=== PATIENT | male | born 1945 | race Caucasian/White ===

== ENCOUNTER 2016-06-20 18:02 | Emergency (ER) | payer MEDICARE, OTHER ==
[2016-06-20 18:39] VITALS: BP 131/81
[2016-06-20] MEDS ORDERED: Tetan/Diph/Pertus SYR(Tdap)* 0.5 ML SYR(BOOSTRIX) use SYR IM ONE (19:23)
[2016-06-20] MEDS ORDERED: Amoxicillin/Clavulanate TAB* 875 MG PO ONE (19:23)
--- NOTE | 2016-06-20 19:32 | UC ---
Bite Injury/Animal HPI - HPI Summary HPI Summary: 06/19/16 HAD BITE TO RIGHT HAND FROM CAT. TODAY AREA AROUND BITE IS BECOMING RED AND SWOLLEN, NO DISCHARGE. LAST TETANUS SHOT UNKNOWN. NO FEVERS. NO SWOLLEN LYMPH NODES. 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 Negative: Fever, Drainage, Swelling, Lymphadenopathy Hx of Bite: Provoked by: - [employer] Animal Available for Observation: Yes Animal Control Notified: Yes - Risk Factors Infection/Sepsis Risk Factors: Full-Thickness Puncture, Delay in Initial Treatment - Allergies/Home Medications Allergies/Adverse Reactions: Allergies Allergy/AdvReac Type Severity Reaction Status Date / Time No Known Allergies Allergy Verified 06/20/16 18:39 Home Medications: Home Medications Levothyroxine TAB* [Synthroid TAB*] 50 mcg PO DAILY 06/20/16 [History Confirmed 06/20/16] PMH/Surg Hx/FS Hx/Imm Hx Previously Healthy: Yes Endocrine History Of: Reports: Thyroid Disease - Surgical History Surgical History: Yes Surgery Procedure, Year, and Place: HERNIA REPAIR, PILONIDAL CYST - Family History Known Family History: Negative: Diabetes - Social History Occupation: Retired Lives: With Family Alcohol Use: Daily Alcohol Amount: 2 BEERS/DAY Substance Use Type: None Smoking Status (MU): Never Smoked Tobacco - Immunization History Most Recent Tetanus Shot: UNKNOWN Review of Systems Constitutional: Negative Skin: Negative Eyes: Negative ENT: Negative Respiratory: Negative Cardiovascular: Negative Gastrointestinal: Negative Genitourinary: Negative Motor: Negative Neurovascular: Negative Musculoskeletal: Edema - RIGHT HAND, Myalgia - RIGHT HAND Neurological: Negative Psychological: Negative All Other Systems Reviewed And Are Negative: Yes Physical Exam Triage Information Reviewed: Yes Appearance: Well-Appearing, No Pain Distress, Well-Nourished Vital Signs: Initial Vital Signs Temp 99.1 F 06/20/16 18:29 Pulse 78 06/20/16 18:29 Resp 16 06/20/16 18:29 BP 131/81 06/20/16 18:29 Pulse Ox 96 06/20/16 18:29 Vital Signs Reviewed: Yes Eye Exam: Normal Eyes: Positive: Conjunctiva Clear ENT Exam: Normal ENT: Positive: Normal ENT inspection, Hearing grossly normal, Pharynx normal, TMs normal Dental Exam: Normal Neck exam: Normal Neck: Positive: Supple, Nontender, No Lymphadenopathy Respiratory Exam: Normal Respiratory: Positive: Chest non-tender, Lungs clear, Normal breath sounds, No respiratory distress, No accessory muscle use Cardiovascular Exam: Normal Cardiovascular: Positive: RRR, No Murmur, Pulses Normal Abdominal Exam: Normal Musculoskeletal: Positive: Strength Intact, ROM Intact, Edema @ - RIGHT HAND Neurological Exam: Normal Psychological Exam: Normal Psychological: Positive: Normal Response To Family Skin: Positive: Other - ERRETHEMA RIGHT HAND Bite Injury Course/Dx - Differential Dx/Diagnosis Differential Diagnosis/HQI/PQRI: Joint Space Infection, Superficial Infection, Deep Space Infection Provider Diagnoses: CAT BITE (PUNCTURE WOUND) RIGHT HAND Discharge - Discharge Plan Condition: Stable Disposition: HOME Prescriptions: Amoxicillin/Clavulanate TAB* [Augmentin TAB 875*] 875 mg PO BID #20 tab Patient Education Materials: Animal Bite (ED) Referrals: Tommy Martin MD [Primary Care Provider] - Karin Thacker MD [Medical Doctor] -
== END 2016-06-20 19:52 | disposition home or self-care (01) ==
LOC: UCEAST 18:02
DX: S61.431A Puncture wound without foreign body of right hand, initial encounter (principal); W55.01XA Bitten by cat, initial encounter; Y93.9 Activity, unspecified; Y92.9 Unspecified place or not applicable; F10.99 Alcohol use, unspecified with unspecified alcohol-induced disorder; Z23 Encounter for immunization
CPT/HCPCS: 90471; 90715; 99212; A9270-GY; G0463

== ENCOUNTER 2016-10-12 21:33 | Emergency (ER) | payer MEDICARE, OTHER ==
[2016-10-12 21:39] VITALS: BP 129/72
--- NOTE | 2016-10-12 21:58 | UC ---
Lower Extremity/Ankle HPI - HPI Summary HPI Summary: Accidentally kicked R foot into hard object this afternoon. Since then has had significant pain, swelling, bruising at R 4th toe and into foot. Is bearing weight. No hx of osteoporosis or bone/joint disorders. Pt's was very concerned and wanted him to be seen. - History of Current Complaint Chief Complaint: UCLowerExtremity Stated Complaint: TOE INJURY Time Seen by Provider: 10/12/16 21:41 Hx Obtained From: Patient Onset/Duration: Sudden Onset Severity Initially: Moderate Severity Currently: Mild Aggravating Factor(s): Standing, Ambulation Able to Bear Weight: Yes - Allergies/Home Medications Allergies/Adverse Reactions: Allergies Allergy/AdvReac Type Severity Reaction Status Date / Time No Known Allergies Allergy Verified 10/12/16 21:39 PMH/Surg Hx/FS Hx/Imm Hx Previously Healthy: Yes - Surgical History Surgical History: Yes Surgery Procedure, Year, and Place: HERNIA REPAIR, PILONIDAL CYST - Family History Known Family History: Negative: Diabetes - Social History Lives: With Family Alcohol Use: Daily Alcohol Amount: 1-2 DRINKS/DAY Substance Use Type: None Smoking Status (MU): Never Smoked Tobacco - Immunization History Most Recent Tetanus Shot: UNKNOWN Review of Systems Constitutional: Negative Skin: Bruising Eyes: Negative ENT: Negative Respiratory: Negative Cardiovascular: Negative Gastrointestinal: Negative Genitourinary: Negative Motor: Negative Neurovascular: Negative Musculoskeletal: Arthralgia - R 4th toe Neurological: Negative Psychological: Negative All Other Systems Reviewed And Are Negative: Yes Physical Exam Triage Information Reviewed: Yes Appearance: Well-Appearing, Well-Nourished Vital Signs: Initial Vital Signs Temp 99 F 10/12/16 21:36 Pulse 75 10/12/16 21:36 Resp 16 10/12/16 21:36 BP 129/72 10/12/16 21:36 Pulse Ox 96 10/12/16 21:36 Vital Signs Reviewed: Yes Eye Exam: Normal Eyes: Positive: Conjunctiva Clear ENT Exam: Normal ENT: Positive: Normal ENT inspection, Hearing grossly normal, Pharynx normal, TMs normal Dental Exam: Normal Neck exam: Normal Neck: Positive: Supple, Nontender, No Lymphadenopathy Respiratory Exam: Normal Respiratory: Positive: Chest non-tender, Lungs clear, Normal breath sounds, No respiratory distress, No accessory muscle use Cardiovascular Exam: Normal Cardiovascular: Positive: RRR, No Murmur Musculoskeletal: Positive: Other: - tenderness and bruising over proximal 4th phalanx of R foot. No bony tenderness in foot. Neurological Exam: Normal Neurological: Positive: Alert Psychological Exam: Normal Skin Exam: Normal Lower Extremity Course/Dx - Differential Dx/Diagnosis Provider Diagnoses: R 4th toe proximal phalangeal fx closed, nondisplaced, clinical diagnosis Discharge - Discharge Plan Condition: Stable Disposition: HOME Patient Education Materials: Toe Fracture (ED) Referrals: Tommy Martin MD [Primary Care Provider] - Additional Instructions: As we discussed, the treatment of broken toes is the same as the treatment for badly sprained or bruised toes. Since your toe is in a normal anatomic position and getting good blood flow, we can call it broken on clinical exam. Simply protect it from injury by wearing stiff, closed-toe shoes and rest as much as necessary. As your pain improves your activity can increase. Don't hesitate to return here or see your primary care provider if you are seeing new or worsening symptoms.
== END 2016-10-12 21:57 | disposition home or self-care (01) ==
LOC: UCEAST 21:33
DX: S92.911A Unspecified fracture of right toe(s), initial encounter for closed fracture (principal); W22.8XXA Striking against or struck by other objects, initial encounter; Y92.9 Unspecified place or not applicable
CPT/HCPCS: 99211; G0463

== ENCOUNTER 2022-11-19 17:03 | Inpatient (IN) ==
[2022-11-19] MEDS ORDERED: Tetan/Diph/Pertus SYR(Tdap) 0.5 ML SYR(BOOSTRIX) use SYR contains LATEX IM ONE (17:52)
[2022-11-19] MEDS ORDERED: fentaNYL 100 mcg/2 ml 50 MCG/ML VIAL IV SLOW PU ONE ×3 (17:53→19:51)
[2022-11-19] MEDS ORDERED: ceFAZolin 2 GM in NS PREMIX 2 GM/100 ML BAG IVPB ONE (17:53)
[2022-11-19] MEDS ORDERED: Lactated Ringers 1000 ml BAG 1,000 ML IV ONE ×2 (19:59)
[2022-11-19 20:40] LABS: ABS Lymphocytes 0.6 10^3/uL (1.0-4.8); ABS Monocytes 0.6 10^3/uL (0.0-1.1); ABS Neutrophils 10.2 10^3/uL (1.5-7.6); Eosinophil % 0.1 %; Hematocrit 37.4 % (38-53); Hemoglobin 12.8 g/dL (13.2-16.3); Lymphocyte % 5.2 %; Mean Corpuscular Hemoglobin 29.7 pg (27-33); Mean Corpuscular Hgb Conc 34.1 g/dL (31-36); Mean Corpuscular Volume 86.9 fL (80-97); Mean Platelet Volume 6.6 fL (7.5-11.2); Platelet Count 158 10^3/uL (150-450); Red Blood Count 4.31 10^6/uL (4.06-5.63); Red Cell Distribution Width 14.1 % (12-17); White Blood Count 11.5 10^3/uL (3.6-10.2)
[2022-11-19 20:50] LABS: Activated Partial Thrombo Time 29.3 seconds (26.0-38.0); INR 1.11 (0.88-1.18)
[2022-11-19 20:57] LABS: Albumin 3.7 g/dL (3.2-5.2); Albumin/Globulin Ratio 1.7 (1-3); Calcium 8.8 mg/dL (8.6-10.3); Creatinine, Serum 1.27 mg/dL (0.67-1.17); Globulin 2.2 g/dL (2-4); Potassium 3.6 mmol/L (3.5-5.0); Total Bilirubin 0.5 mg/dL (0.2-1.0); Total Protein 5.9 g/dL (6.4-8.9); eGFR CKD-EPI 58.9 (>60)
[2022-11-19] MEDS ORDERED: Ondansetron 4 mg VIAL 2 MG/ML 2 ml VIAL IV PRN (21:17)
[2022-11-19] MEDS ORDERED: Magnesium Hydroxide LIQ 30 ML UDC PO PRN (21:47)
[2022-11-19] MEDS: Acetaminophen IV 1 GM/100ML 1,000 MG/100 ML BAG IV SCH (22:14)
[2022-11-20] MEDS: NS 0.9% 1000 ml BAG 1,000 ML IV SCH ×2 (03:15→13:17)
[2022-11-20] MEDS: Acetaminophen IV 1 GM/100ML 1,000 MG/100 ML BAG IV SCH ×4 (04:17→22:52)
[2022-11-20] MEDS: ceFAZolin 2 GM PREMIX 2 GM/50 ML BAG IV SCH ×3 (04:55→20:34)
[2022-11-20 05:51] LABS: ABS Lymphocytes 0.6 10^3/uL (1.0-4.8); ABS Monocytes 0.7 10^3/uL (0.0-1.1); ABS Neutrophils 6.5 10^3/uL (1.5-7.6); Eosinophil % 0.3 %; Hematocrit 32.3 % (38-53); Hemoglobin 11.4 g/dL (13.2-16.3); Lymphocyte % 7.4 %; Mean Corpuscular Hemoglobin 30.5 pg (27-33); Mean Corpuscular Hgb Conc 35.2 g/dL (31-36); Mean Corpuscular Volume 86.7 fL (80-97); Mean Platelet Volume 6.7 fL (7.5-11.2); Platelet Count 129 10^3/uL (150-450); Red Blood Count 3.73 10^6/uL (4.06-5.63); Red Cell Distribution Width 14.4 % (12-17); White Blood Count 7.9 10^3/uL (3.6-10.2)
[2022-11-20 06:09] LABS: Calcium 8.2 mg/dL (8.6-10.3); Creatinine, Serum 1.12 mg/dL (0.67-1.17); Magnesium 1.9 mg/dL (1.9-2.7); Potassium 3.9 mmol/L (3.5-5.0); eGFR CKD-EPI 68.5 (>60)
[2022-11-20] MEDS: Polyethylene Glycol 3350 17 GM PACKET PO SCH (08:45)
[2022-11-20] MEDS: Morphine 2 MG/ML SYRINGE IV PRN ×2 (15:24→20:28)
[2022-11-20] MEDS: Senna TAB 8.6 mg TAB PO SCH (20:28)
[2022-11-21] MEDS: Morphine 2 MG/ML SYRINGE IV PRN ×2 (02:28→22:13)
[2022-11-21] MEDS: Acetaminophen IV 1 GM/100ML 1,000 MG/100 ML BAG IV SCH ×3 (04:32→21:44)
[2022-11-21] MEDS: ceFAZolin 2 GM PREMIX 2 GM/50 ML BAG IV SCH ×3 (05:05→20:00)
[2022-11-21 05:55] LABS: ABS Eosinophils 0.1 10^3/uL (0.0-0.5); ABS Lymphocytes 0.5 10^3/uL (1.0-4.8); ABS Monocytes 0.6 10^3/uL (0.0-1.1); ABS Neutrophils 4.2 10^3/uL (1.5-7.6); Eosinophil % 1.6 %; Hematocrit 29.7 % (38-53); Hemoglobin 10.5 g/dL (13.2-16.3); Mean Corpuscular Hemoglobin 30.6 pg (27-33); Mean Corpuscular Hgb Conc 35.2 g/dL (31-36); Mean Platelet Volume 6.8 fL (7.5-11.2); Platelet Count 111 10^3/uL (150-450); Red Blood Count 3.42 10^6/uL (4.06-5.63); Red Cell Distribution Width 14.2 % (12-17); White Blood Count 5.4 10^3/uL (3.6-10.2)
[2022-11-21 06:12] LABS: Calcium 8.3 mg/dL (8.6-10.3); Creatinine, Serum 1.09 mg/dL (0.67-1.17); Magnesium 1.8 mg/dL (1.9-2.7); Potassium 3.9 mmol/L (3.5-5.0); eGFR CKD-EPI 70.8 (>60)
[2022-11-21] MEDS ORDERED: Magnesium Sulfate IV 3 GM in NS 0.9% 100 ml BAG 100 ML IVPB ONE (07:06)
[2022-11-21] MEDS ORDERED: Vancomycin 1,000 MG VIAL ONE (07:32)
[2022-11-21] MEDS ORDERED: Bupivacaine 0.5% W/EPI SDV 10 ML VIAL INJ ONE (07:32)
[2022-11-21] MEDS ORDERED: Midazolam 2 mg/2 ml VIAL 1 mg/ml 2 ml VIAL (2 mg) ONE (07:47)
[2022-11-21] MEDS ORDERED: fentaNYL 100 mcg/2 ml 50 MCG/ML VIAL ONE (07:47)
[2022-11-21] MEDS ORDERED: Propofol 10 MG/ML 20 ML BTL ONE (07:48)
[2022-11-21] MEDS ORDERED: Lidocaine 2% PF 5 ML VIAL ONE (07:48)
[2022-11-21] MEDS ORDERED: Dexamethasone IV 4 MG/ML VIAL 1 ml VIAL ONE ×2 (07:49→09:19)
[2022-11-21] MEDS ORDERED: Rocuronium 50 mg VIAL 10 mg/ml 5 ml VIAL (50 mg) ONE ×5 (07:49→13:46)
[2022-11-21] MEDS ORDERED: ceFAZolin 2 GM in NS PREMIX 2 GM/100 ML BAG IVPB ONE ×2 (08:32→12:59)
[2022-11-21] MEDS: Polyethylene Glycol 3350 17 GM PACKET PO SCH (08:44)
[2022-11-21] MEDS ORDERED: HYDROmorphone 0.5 MG/0.5 ML SYRINGE ONE ×3 (09:10→14:05)
[2022-11-21] MEDS ORDERED: Acetaminophen IV 1 GM/100ML 1,000 MG/100 ML BAG IV ONE ×2 (09:24→16:08)
[2022-11-21] MEDS ORDERED: Ondansetron 4 mg VIAL 2 MG/ML 2 ml VIAL IV PRN (11:25)
[2022-11-21] MEDS ORDERED: fentaNYL 100 mcg/2 ml 50 MCG/ML VIAL IV PRN (11:25)
[2022-11-21] MEDS ORDERED: Naloxone 0.4 mg VIAL 0.4 mg/ml 1 ml VIAL IV PRN (11:25)
[2022-11-21] MEDS ORDERED: Ondansetron 4 mg VIAL 2 MG/ML 2 ml VIAL ONE (14:17)
[2022-11-21] MEDS: Senna TAB 8.6 mg TAB PO SCH (22:12)
[2022-11-21] MEDS: ceFAZolin 1 GM ADVAN 1 GM in NS 0.9% 50 ML 50 ML IVPB SCH (22:57)
[2022-11-22 06:49] LABS: ABS Lymphocytes 0.6 10^3/uL (1.0-4.8); ABS Neutrophils 5.6 10^3/uL (1.5-7.6); Eosinophil % 0.1 %; Hematocrit 26.8 % (38-53); Hemoglobin 9.6 g/dL (13.2-16.3); Lymphocyte % 7.7 %; Mean Corpuscular Hemoglobin 30.6 pg (27-33); Mean Corpuscular Hgb Conc 35.8 g/dL (31-36); Mean Corpuscular Volume 85.4 fL (80-97); Mean Platelet Volume 6.8 fL (7.5-11.2); Platelet Count 120 10^3/uL (150-450); Red Blood Count 3.14 10^6/uL (4.06-5.63); Red Cell Distribution Width 13.9 % (12-17); White Blood Count 7.2 10^3/uL (3.6-10.2)
[2022-11-22] MEDS: ceFAZolin 1 GM ADVAN 1 GM in NS 0.9% 50 ML 50 ML IVPB SCH ×2 (06:52→15:07)
[2022-11-22 07:03] LABS: Calcium 7.9 mg/dL (8.6-10.3); Creatinine, Serum 1.08 mg/dL (0.67-1.17); Magnesium 1.9 mg/dL (1.9-2.7); Potassium 4.1 mmol/L (3.5-5.0); eGFR CKD-EPI 71.6 (>60)
[2022-11-22] MEDS: Morphine 2 MG/ML SYRINGE IV PRN (07:45)
[2022-11-22] MEDS: Polyethylene Glycol 3350 17 GM PACKET PO SCH (08:24)
[2022-11-22] MEDS: Senna TAB 8.6 mg TAB PO SCH (20:40)
[2022-11-23] MEDS: Polyethylene Glycol 3350 17 GM PACKET PO SCH (07:48)
[2022-11-23] MEDS: Senna TAB 8.6 mg TAB PO SCH (21:03)
[2022-11-24] MEDS: Polyethylene Glycol 3350 17 GM PACKET PO SCH (09:10)
[2022-11-24 10:43] VITALS: BP 113/69
== END 2022-11-24 16:15 | disposition home or self-care (01) | DRG 493 ==
LOC: EDHOLD 17:03 → ED 17:03 → SUATTDRO 21:17 → MED 11-20 14:25 → SSU 11-21 15:53
PROVIDERS: ADMIT Hospitalist; ATTEND Orthopaedic Surgery

== ENCOUNTER 2024-03-13 05:25 | Observation (INO) ==
[~2024-03-13 05:25] MED LIST: Buffered Lidocaine 1% SYRIN 1 ml INTRADERM ONE; Lactated Ringers 1000 ml BAG 1,000 ML IV SCH; Lidocaine 1% w EPI 1:200,000 SDV 30 ML VIAL ONE; Naloxone 0.4 mg VIAL 0.4 mg/ml 1 ml VIAL IV PRN; Vancomycin 1,000 MG VIAL ONE
[2024-03-13] MEDS ORDERED: Tranexamic Acid 1 GM/100ML BAG 2,000 MG/200 ML BAG IV ONE (06:11)
[2024-03-13] MEDS ORDERED: ceFAZolin 2 GM PREMIX 2 GM/50 ML BAG ONE (06:11)
[2024-03-13] MEDS ORDERED: Dexamethasone IV 4 MG/ML VIAL 1 ml VIAL ONE (06:19)
[2024-03-13] MEDS ORDERED: Propofol 10 MG/ML 20 ML BTL ONE (06:19)
[2024-03-13] MEDS ORDERED: Ondansetron 4 mg VIAL 2 MG/ML 2 ml VIAL ONE (06:19)
[2024-03-13] MEDS ORDERED: Lidocaine 2% PF 5 ML VIAL ONE (06:19)
[2024-03-13] MEDS ORDERED: fentaNYL 250 mcg/5 ml 50 MCG/ML 5 ml VIAL (250 MCG) ONE (06:20)
[2024-03-13] MEDS ORDERED: Rocuronium 50 mg VIAL 10 mg/ml 5 ml VIAL (50 mg) ONE ×2 (06:20→09:58)
[2024-03-13] MEDS ORDERED: Midazolam 2 mg/2 ml VIAL 1 mg/ml 2 ml VIAL (2 mg) ONE (06:20)
[2024-03-13 06:26] LABS: Rapid COVID-19 Molecular Undetected (Undetected)
[2024-03-13] MEDS ORDERED: Lidocaine 1% 50 ML MDV VIAL ONE (06:56)
[2024-03-13] MEDS ORDERED: ROPIVACAINE 5 MG/ML 30 ML BTL (0.5%) ONE (07:45)
[2024-03-13] MEDS ORDERED: HYDROmorphone 0.5 MG/0.5 ML SYRINGE IV SLOW PU PRN (08:00)
[2024-03-13] MEDS ORDERED: Phenylephrine IV 10 MG/ML 1 ml VIAL ONE (09:07)
[2024-03-13] MEDS ORDERED: Lactulose 30 ml UDC PO PRN (12:05)
[2024-03-13] MEDS ORDERED: Morphine 2 MG/ML SYRINGE IV PRN (12:05)
[2024-03-13] MEDS ORDERED: Magnesium Hydroxide LIQ 30 ML UDC PO PRN (12:05)
[2024-03-13] MEDS ORDERED: Ondansetron 4 mg VIAL 2 MG/ML 2 ml VIAL IV PRN (12:05)
[2024-03-13] MEDS ORDERED: Ondansetron ODT 4 mg TAB 4 MG TAB PO PRN (12:05)
[2024-03-13] MEDS: Lactated Ringers 1000 ml BAG 1,000 ML IV SCH (14:02)
[2024-03-13] MEDS: ceFAZolin 1 GM ADVAN 1 GM in NS 0.9% 50 ML 50 ML IVPB SCH (16:45)
[2024-03-13 18:01] VITALS: BP 126/70
[2024-03-13] MEDS ORDERED: Magnesium Hydroxide LIQ 30 ML UDC PO SCH (21:00)
[2024-03-14] MEDS ORDERED: Vitamin THERAPEUTIC TAB PO SCH (09:00)
== END 2024-03-13 18:35 | disposition home or self-care (01) ==
LOC: SSU 05:25 → OR 05:25
PROVIDERS: ADMIT Orthopaedic Surgery; ATTEND Orthopaedic Surgery